=== PATIENT | female | born 1955 | race Caucasian/White ===

== ENCOUNTER 2018-11-03 07:00 | Inpatient (IN) | payer OTHER ==
[~2018-11-03] VITALS: Ht 160 cm; Wt 86.2 kg
[2018-11-03] MEDS ORDERED: LOSARTAN POTAS100 MG PO (10:17)
[2018-11-03] MEDS ORDERED: GLIPIZIDE10 MG PO (10:17)
[2018-11-03] MEDS ORDERED: FORTAMET1000 MG PO (10:17)
[2018-11-03] MEDS ORDERED: EFFEXOR XR75 MG PO (10:18)
[2018-11-03] MEDS ORDERED: NIFEDIPINE ER30 M1 PO (10:18)
[2018-11-03] MEDS ORDERED: GABAPENTIN600 MG PO (10:18)
[2018-11-03] MEDS ORDERED: MONTELUKAST SOD10 MG PO (10:19)
[2018-11-03] MEDS ORDERED: RESTORIL30 MG PO (10:19)
[2018-11-03] MEDS ORDERED: ADVAIR HFA 115/12 GM IH (10:19)
[2018-11-03] MEDS ORDERED: PROVENTIL HFA6.7 GM IH (10:20)
[2018-11-11] MEDS ORDERED: DOCUSATE SODIU100 MG PO (09:07)
[2018-11-11] MEDS ORDERED: PERCOCET 5-3251 EACH PO (09:09)
[2018-11-11] MEDS ORDERED: RESTORIL30 M1 PO (09:09)
== END 2018-11-11 11:26 | disposition home or self-care (01) | DRG 455 ==
LOC: SURH 11-10 07:00 → SURG 11-10 07:47 → O/R 11-10 07:47 → SURG 11-10 10:23
PROVIDERS: Orthopaedic Surgery Orthopaedic Surgery of the Spine
PROC: 0RG1071 Fusion of Cervical Vertebral Joint with Autologous Tissue Substitute, Posterior Approach, Posterior Column, Open Approach (ICD-10-PCS; 2018-11-10)
PROC: 0RT30ZZ Resection of Cervical Vertebral Disc, Open Approach (ICD-10-PCS; 2018-11-10)
PROC: 07DS3ZZ Extraction of Vertebral Bone Marrow, Percutaneous Approach (ICD-10-PCS; 2018-11-10)
PROC: 0RG10A0 Fusion of Cervical Vertebral Joint with Interbody Fusion Device, Anterior Approach, Anterior Column, Open Approach (ICD-10-PCS; principal; 2018-11-10 07:00)
DX: M47.22 Other spondylosis with radiculopathy, cervical region (principal); M50.122 Cervical disc disorder at C5-C6 level with radiculopathy; E11.9 Type 2 diabetes mellitus without complications; I10 Essential (primary) hypertension